=== PATIENT | female | born 1960 | race Two or more races ===

== ENCOUNTER 2017-06-23 08:43 | Outpatient (CLI) | payer OTHER ==
[~2017-06-23 08:43] MED LIST: ALDOMET PO; Coreg PO; FLONASE16 GM NS; GILTUSS TR TAB1 EACH PO; GLUCOPHAGE XR750 MG; GLUCOPHAGE XR750 MG PO; INTESTINEX1 CA1 PO; INTESTINEX1 CAP PO; LEVSIN/SL0.125 MG PO; LIPITOR20 MG; LISINOPRIL20 MG PO; LOSARTAN-HCTZ1 EAC2; MAXIDE; MAXIDEX15 ML OP; METFORMIN HCL750 MG; Mucinex 600 MG TABLET.SA PO; NEURONTIN300 MG PO; PEPCID20 MG PO; PRILOSEC10 MG PO; SPIRONOLACTONE25 MG PO; TESSALON PERLE100 M1 PO; TOPROL XL25 M1; WOMEN'S DAILY1 EACH; ZANTAC300 MG PO; ZESTRIL10 MG; ZOFRAN4 MG PO
== END 2017-06-23 08:50 | disposition home or self-care (01) ==
LOC: LAB 08:43
DX: I11.9 Hypertensive heart disease without heart failure (principal); E78.2 Mixed hyperlipidemia; E11.8 Type 2 diabetes mellitus with unspecified complications; E56.8 Deficiency of other vitamins

== ENCOUNTER 2017-07-28 08:15 | Outpatient (CLI) | payer OTHER | END 2017-07-28 08:23 | disposition home or self-care (01) | LOC: LAB 08:15 | DX: E11.65 Type 2 diabetes mellitus with hyperglycemia (principal); E03.8 Other specified hypothyroidism; E78.00 Pure hypercholesterolemia, unspecified ==

== ENCOUNTER 2017-11-01 16:30 | Outpatient (CLI) | payer OTHER | END 2017-11-01 16:38 | disposition home or self-care (01) | LOC: RAD 16:30 | DX: R05 Cough (principal) ==

== ENCOUNTER 2017-11-10 08:33 | Outpatient (CLI) | payer OTHER | END 2017-11-10 08:42 | disposition home or self-care (01) | LOC: LAB 08:33 | DX: E11.8 Type 2 diabetes mellitus with unspecified complications (principal); E78.2 Mixed hyperlipidemia; I11.9 Hypertensive heart disease without heart failure ==

== ENCOUNTER 2017-11-26 16:01 | Outpatient (CLI) | payer OTHER | END 2017-11-26 16:09 | disposition home or self-care (01) | LOC: RAD 16:01 | DX: M25.512 Pain in left shoulder (principal) ==

== ENCOUNTER 2017-11-29 10:35 | Outpatient (CLI) | payer OTHER | END 2017-11-29 11:25 | disposition home or self-care (01) | LOC: NUCLEAR 10:35 | DX: M85.80 Other specified disorders of bone density and structure, unspecified site (principal) ==

== ENCOUNTER → 2017-12-22 08:21 | Outpatient (CLI) | payer OTHER | END | disposition home or self-care (01) | LOC: LAB 08:21 | DX: E11.8 Type 2 diabetes mellitus with unspecified complications (principal); E78.2 Mixed hyperlipidemia; I11.9 Hypertensive heart disease without heart failure; E56.8 Deficiency of other vitamins; E55.9 Vitamin D deficiency, unspecified ==

== ENCOUNTER 2018-01-05 10:58 | Outpatient (CLI) | payer OTHER | END 2018-01-05 11:01 | disposition home or self-care (01) | LOC: LAB 10:58 | DX: E55.9 Vitamin D deficiency, unspecified (principal); M85.9 Disorder of bone density and structure, unspecified; E21.2 Other hyperparathyroidism; M81.8 Other osteoporosis without current pathological fracture; E56.1 Deficiency of vitamin K; E88.89 Other specified metabolic disorders; E83.42 Hypomagnesemia ==

== ENCOUNTER 2018-02-02 08:16 | Outpatient (CLI) | payer OTHER | END 2018-02-02 08:23 | disposition home or self-care (01) | LOC: LAB 08:16 | DX: E11.65 Type 2 diabetes mellitus with hyperglycemia (principal); E78.2 Mixed hyperlipidemia; E89.0 Postprocedural hypothyroidism ==

== ENCOUNTER 2018-03-28 17:06 | Outpatient (CLI) | payer OTHER | END 2018-03-28 17:11 | disposition home or self-care (01) | LOC: RAD 17:06 | DX: M54.2 Cervicalgia (principal); M54.6 Pain in thoracic spine ==

== ENCOUNTER 2018-05-06 13:21 | Outpatient (CLI) | payer OTHER | END 2018-05-06 13:24 | disposition home or self-care (01) | LOC: RAD 13:21 | DX: M54.5 Low back pain (principal) ==

== ENCOUNTER 2018-05-25 09:05 | Outpatient (CLI) | payer OTHER | END 2018-05-25 09:14 | disposition home or self-care (01) | LOC: LAB 09:05 | DX: I10 Essential (primary) hypertension (principal); J00 Acute nasopharyngitis [common cold]; M26.629 Arthralgia of temporomandibular joint, unspecified side; E78.49 Other hyperlipidemia ==

== ENCOUNTER → 2018-05-28 | Emergency (ER) | payer OTHER ==
[~2018-05-28] VITALS: Ht 149.9 cm; Wt 72.6 kg
[~2018-05-28] MED LIST changes: +CRESTOR5 MG
== END | disposition home or self-care (01) ==
LOC: ER 14:03
DX: S39.012A Strain of muscle, fascia and tendon of lower back, initial encounter (principal); X58.XXXA Exposure to other specified factors, initial encounter; Y93.89 Activity, other specified; Y92.89 Other specified places as the place of occurrence of the external cause; Y99.8 Other external cause status

== ENCOUNTER 2018-07-27 08:19 | Outpatient (CLI) | payer OTHER ==
[~2018-07-27 08:19] MED LIST changes: +LYRICA50 MG PO
== END 2018-07-27 08:24 | disposition home or self-care (01) ==
LOC: LAB 08:19
DX: E11.65 Type 2 diabetes mellitus with hyperglycemia (principal)

== ENCOUNTER → 2018-08-02 | Outpatient (CLI) | payer OTHER ==
[~2018-08-02] MED LIST changes: +ETODOLAC400 MG PO; +ROBAXIN500 MG PO
== END | disposition home or self-care (01) ==
LOC: MRI 10:46
DX: M54.16 Radiculopathy, lumbar region (principal); M54.5 Low back pain
CPT/HCPCS: 72148

== ENCOUNTER 2018-08-17 08:46 | Outpatient (CLI) | payer OTHER | END 2018-08-17 08:51 | disposition home or self-care (01) | LOC: LAB 08:46 | DX: Z11.3 Encounter for screening for infections with a predominantly sexual mode of transmission (principal) ==

== ENCOUNTER → 2018-08-31 08:02 | Outpatient (CLI) | payer OTHER | END | disposition home or self-care (01) | LOC: LAB 08:02 | DX: M06.9 Rheumatoid arthritis, unspecified (principal); M32.19 Other organ or system involvement in systemic lupus erythematosus; M81.0 Age-related osteoporosis without current pathological fracture; E03.8 Other specified hypothyroidism; M33.12 Other dermatomyositis with myopathy; I10 Essential (primary) hypertension ==

== ENCOUNTER 2018-09-13 10:17 | Outpatient (CLI) | payer OTHER | END 2018-09-13 10:36 | disposition home or self-care (01) | LOC: SONOGRAMA 10:17 | DX: R10.2 Pelvic and perineal pain (principal) ==

== ENCOUNTER → 2018-09-19 | Outpatient (CLI) | payer OTHER | END | disposition home or self-care (01) | LOC: LAB 08:27 | DX: M06.89 Other specified rheumatoid arthritis, multiple sites (principal); M32.19 Other organ or system involvement in systemic lupus erythematosus; D68.61 Antiphospholipid syndrome; M35.00 Sjogren syndrome, unspecified ==

== ENCOUNTER → 2018-10-21 | Outpatient (CLI) | payer OTHER | END | disposition home or self-care (01) | LOC: MAMO-SONO 14:03 | DX: N64.4 Mastodynia (principal); Z12.31 Encounter for screening mammogram for malignant neoplasm of breast ==

== ENCOUNTER 2018-11-06 16:25 | Outpatient (CLI) | payer OTHER | END 2018-11-06 16:34 | disposition home or self-care (01) | LOC: RAD 16:25 | DX: M16.0 Bilateral primary osteoarthritis of hip (principal) ==

== ENCOUNTER 2018-12-05 12:41 | Outpatient (CLI) | payer OTHER | END 2018-12-05 12:47 | disposition home or self-care (01) | LOC: MRI 12:41 | DX: M89.8X5 Other specified disorders of bone, thigh (principal); M25.552 Pain in left hip | CPT/HCPCS: 73721 ==

== ENCOUNTER 2018-12-07 08:53 | Outpatient (CLI) | payer OTHER | END 2018-12-07 09:11 | disposition home or self-care (01) | LOC: LAB 08:53 | DX: E11.65 Type 2 diabetes mellitus with hyperglycemia (principal); M33.12 Other dermatomyositis with myopathy; E78.00 Pure hypercholesterolemia, unspecified ==

== ENCOUNTER 2019-01-07 07:24 | Outpatient (CLI) | payer OTHER | END 2019-01-07 07:50 | disposition home or self-care (01) | LOC: NUCLEAR 07:24 | DX: M25.552 Pain in left hip (principal); D49.2 Neoplasm of unspecified behavior of bone, soft tissue, and skin | CPT/HCPCS: 78315; A9503 ==

== ENCOUNTER → 2019-03-08 08:30 | Outpatient (CLI) | payer OTHER | END | disposition home or self-care (01) | LOC: LAB 08:30 | DX: E11.65 Type 2 diabetes mellitus with hyperglycemia (principal) ==

== ENCOUNTER → 2019-06-28 07:49 | Outpatient (CLI) | payer OTHER | END | disposition home or self-care (01) | LOC: LAB 07:49 | DX: M45.9 Ankylosing spondylitis of unspecified sites in spine (principal); L40.59 Other psoriatic arthropathy; I10 Essential (primary) hypertension; E11.65 Type 2 diabetes mellitus with hyperglycemia; E78.00 Pure hypercholesterolemia, unspecified ==

== ENCOUNTER 2019-08-06 16:53 | Outpatient (CLI) | payer OTHER | END 2019-08-06 17:00 | disposition home or self-care (01) | LOC: RAD 16:53 | DX: D16.22 Benign neoplasm of long bones of left lower limb (principal); M25.561 Pain in right knee ==

== ENCOUNTER 2019-11-08 11:06 | Outpatient (CLI) | payer OTHER | END 2019-11-08 11:18 | disposition home or self-care (01) | LOC: LAB 11:06 | PROVIDERS: ATTEND General Practice | DX: R10.2 Pelvic and perineal pain (principal); E55.9 Vitamin D deficiency, unspecified; E11.9 Type 2 diabetes mellitus without complications; E78.49 Other hyperlipidemia; Z00.00 Encounter for general adult medical examination without abnormal findings; I10 Essential (primary) hypertension ==

== ENCOUNTER → 2019-11-19 | Outpatient (CLI) | payer OTHER | END | disposition home or self-care (01) | LOC: LAB 15:59 | PROVIDERS: ATTEND General Practice | DX: Z11.1 Encounter for screening for respiratory tuberculosis (principal) ==

== ENCOUNTER 2019-12-11 14:14 | Outpatient (CLI) | payer OTHER | END 2019-12-11 14:20 | disposition home or self-care (01) | LOC: MRI 14:14 | PROVIDERS: ATTEND Physical Medicine & Rehabilitation | DX: M54.5 Low back pain (principal) | CPT/HCPCS: 72148 ==

== ENCOUNTER 2020-01-02 08:05 | Emergency (ER) | payer OTHER ==
[~2020-01-02] VITALS: Ht 149.9 cm; Wt 72.6 kg
[2020-01-02] MEDS ORDERED: DICLOFENAC POTA50 MG (08:14)
[2020-01-02] MEDS ORDERED: CARAFATE1 GM PO (11:35)
[2020-01-02] MEDS ORDERED: LEVSIN/SL0.125 MG SL (11:35)
== END 2020-01-02 12:54 | disposition home or self-care (01) ==
LOC: ER 08:05
DX: R10.13 Epigastric pain (principal); Z03.818 Encounter for observation for suspected exposure to other biological agents ruled out

== ENCOUNTER 2020-02-06 09:00 | Outpatient (CLI) | payer OTHER ==
[~2020-02-06 09:00] MED LIST changes: +CARAFATE1 GM PO; +DICLOFENAC POTA50 MG; +LEVSIN/SL0.125 MG SL
== END 2020-02-06 15:43 | disposition home or self-care (01) ==
LOC: PPH VACUNA 09:00
DX: Z23 Encounter for immunization (principal)

== ENCOUNTER 2020-03-15 12:08 | Outpatient (CLI) | payer OTHER ==
[2020-03-24] MEDS ORDERED: ALDACTONE25 MG PO (08:24)
== END 2020-03-15 15:35 | disposition home or self-care (01) ==
LOC: MRI 12:08
PROVIDERS: ATTEND Orthopaedic Surgery
DX: S83.241A Other tear of medial meniscus, current injury, right knee, initial encounter (principal); M25.561 Pain in right knee
CPT/HCPCS: 73721

== ENCOUNTER 2020-03-30 05:46 | Day surgery (SDC) | payer OTHER ==
[~2020-03-30 05:46] MED LIST changes: +ALDACTONE25 MG PO
[2020-03-30] MEDS ORDERED: ULTRACET PO (08:24)
== END 2020-03-30 14:00 | disposition home or self-care (01) ==
LOC: CIR.AMB 05:46
PROVIDERS: ATTEND Orthopaedic Surgery
DX: M23.321 Other meniscus derangements, posterior horn of medial meniscus, right knee (principal); M94.261 Chondromalacia, right knee; Z20.828 Contact with and (suspected) exposure to other viral communicable diseases

== ENCOUNTER 2020-05-04 09:21 | Outpatient (CLI) | payer OTHER ==
[~2020-05-04 09:21] MED LIST changes: +ULTRACET PO
== END 2020-05-04 15:00 | disposition home or self-care (01) ==
LOC: PPH VACUNA 09:21
DX: Z23 Encounter for immunization (principal)

== ENCOUNTER → 2020-05-27 15:04 | Outpatient (CLI) | payer OTHER | END | disposition home or self-care (01) | LOC: RAD 15:04 | PROVIDERS: ATTEND General Practice | DX: M25.561 Pain in right knee (principal) ==

== ENCOUNTER 2020-05-28 12:07 | Outpatient (CLI) | payer OTHER | END 2020-05-28 12:08 | disposition home or self-care (01) | LOC: LAB 12:07 | PROVIDERS: ATTEND Internal Medicine | DX: I10 Essential (primary) hypertension (principal); E78.2 Mixed hyperlipidemia; E03.8 Other specified hypothyroidism; R80.8 Other proteinuria ==

== ENCOUNTER 2020-08-14 08:00 | Outpatient (CLI) | payer OTHER | END 2020-08-14 15:00 | disposition home or self-care (01) | LOC: LAB 08:00 | PROVIDERS: ATTEND Internal Medicine | DX: Z13.820 Encounter for screening for osteoporosis (principal); R80.8 Other proteinuria; N39.0 Urinary tract infection, site not specified; E03.8 Other specified hypothyroidism ==

== ENCOUNTER 2020-08-16 13:47 | Outpatient (CLI) | payer OTHER | END 2020-08-16 13:56 | disposition home or self-care (01) | LOC: MAMO-SONO 13:47 | PROVIDERS: ATTEND Internal Medicine | DX: Z13.820 Encounter for screening for osteoporosis (principal); N64.59 Other signs and symptoms in breast ==

== ENCOUNTER 2020-08-17 13:54 | Outpatient (CLI) | payer OTHER | END 2020-08-17 13:56 | disposition home or self-care (01) | LOC: NUCLEAR 13:54 | PROVIDERS: ATTEND Internal Medicine | DX: M81.0 Age-related osteoporosis without current pathological fracture (principal) ==

== ENCOUNTER 2020-11-09 06:30 | Emergency (ER) | payer OTHER ==
[~2020-11-09] VITALS: Ht 149.9 cm; Wt 72.6 kg
[2020-11-09] MEDS ORDERED: TESSALON PERLE100 M1 PO (09:38)
== END 2020-11-09 10:09 | disposition home or self-care (01) ==
LOC: ER 06:30
DX: R05 Cough (principal); E83.42 Hypomagnesemia; Z11.52 Encounter for screening for COVID-19

== ENCOUNTER 2020-12-21 09:39 | Emergency (ER) | payer OTHER ==
[~2020-12-21] VITALS: Ht 149.9 cm; Wt 72.6 kg
[2020-12-21] MEDS ORDERED: CIPRO500 MG PO (14:45)
== END 2020-12-21 15:39 | disposition home or self-care (01) ==
LOC: ER 09:39
DX: R30.0 Dysuria (principal)

== ENCOUNTER 2021-01-28 12:46 | Outpatient (CLI) | payer OTHER ==
[~2021-01-28 12:46] MED LIST changes: +CIPRO500 MG PO
== END 2021-01-28 12:47 | disposition home or self-care (01) ==
LOC: LAB 12:46
PROVIDERS: ATTEND General Practice
DX: M25.511 Pain in right shoulder (principal); M25.551 Pain in right hip

== ENCOUNTER 2021-02-17 08:00 | Outpatient (CLI) | payer OTHER | END 2021-02-17 08:30 | disposition home or self-care (01) | LOC: PPH VACUNA 08:00 | PROVIDERS: ATTEND Emergency Medicine Pediatric Emergency Medicine | DX: Z23 Encounter for immunization (principal) ==

== ENCOUNTER 2021-02-25 07:38 | Outpatient (CLI) | payer OTHER | END 2021-02-25 07:39 | disposition home or self-care (01) | LOC: LAB 07:38 → RAD 07:38 → LAB 07:39 | PROVIDERS: ATTEND General Practice | DX: M54.59 Other low back pain (principal) ==

== ENCOUNTER 2021-05-23 08:18 | Emergency (ER) | payer OTHER ==
[~2021-05-23] VITALS: Ht 149.9 cm; Wt 70.3 kg
[2021-05-23] MEDS ORDERED: EZALLOR SPRINKLE5 MG PO (08:27)
[2021-05-23] MEDS ORDERED: CARVEDILOL ER40 MG (08:27)
== END 2021-05-23 10:36 | disposition home or self-care (01) ==
LOC: ER 08:18
DX: B34.9 Viral infection, unspecified (principal); E11.9 Type 2 diabetes mellitus without complications; I10 Essential (primary) hypertension; Z79.84 Long term (current) use of oral hypoglycemic drugs; Z20.822 Contact with and (suspected) exposure to COVID-19

== ENCOUNTER 2021-05-25 06:54 | Outpatient (CLI) | payer OTHER ==
[~2021-05-25 06:54] MED LIST changes: +CARVEDILOL ER40 MG; +EZALLOR SPRINKLE5 MG PO
== END 2021-05-25 06:58 | disposition home or self-care (01) ==
LOC: LAB 06:54
PROVIDERS: ATTEND Emergency Medicine Pediatric Emergency Medicine
DX: I10 Essential (primary) hypertension (principal); M54.59 Other low back pain; Z01.810 Encounter for preprocedural cardiovascular examination; E03.8 Other specified hypothyroidism; E78.89 Other lipoprotein metabolism disorders; E55.9 Vitamin D deficiency, unspecified; E11.51 Type 2 diabetes mellitus with diabetic peripheral angiopathy without gangrene; E11.9 Type 2 diabetes mellitus without complications; E66.8 Other obesity; G62.89 Other specified polyneuropathies; Z13.820 Encounter for screening for osteoporosis

== ENCOUNTER 2021-05-30 13:26 | Outpatient (CLI) | payer OTHER | END 2021-05-30 13:31 | disposition home or self-care (01) | LOC: LAB 13:26 | DX: U07.1 COVID-19 (principal) ==

== ENCOUNTER 2021-06-16 12:20 | Emergency (ER) | payer OTHER ==
[~2021-06-16] VITALS: Ht 149.9 cm; Wt 72.6 kg
[2021-06-16] MEDS ORDERED: KETO10TA2 PO (15:07)
[2021-06-16] MEDS ORDERED: LEVSIN/SL0.125 MG PO (15:07)
== END 2021-06-16 15:15 | disposition home or self-care (01) ==
LOC: ER 12:20
DX: R10.11 Right upper quadrant pain (principal); Z03.818 Encounter for observation for suspected exposure to other biological agents ruled out

== ENCOUNTER → 2021-07-29 06:27 | Outpatient (CLI) | payer OTHER ==
[~2021-07-29 06:27] MED LIST changes: +KETO10TA2 PO
== END | disposition home or self-care (01) ==
LOC: LAB 06:27
DX: E88.9 Metabolic disorder, unspecified (principal); E03.9 Hypothyroidism, unspecified; D64.9 Anemia, unspecified

== ENCOUNTER 2021-08-26 13:55 | Outpatient (CLI) | payer OTHER | END 2021-08-26 14:25 | disposition home or self-care (01) | LOC: PPH VACUNA 13:55 | PROVIDERS: ATTEND Emergency Medicine Pediatric Emergency Medicine | DX: Z23 Encounter for immunization (principal) ==

== ENCOUNTER 2021-08-27 10:22 | Outpatient (CLI) | payer OTHER | END 2021-08-27 10:27 | disposition home or self-care (01) | LOC: LAB 10:22 | PROVIDERS: ATTEND General Practice | DX: E78.5 Hyperlipidemia, unspecified (principal); E55.9 Vitamin D deficiency, unspecified; N39.0 Urinary tract infection, site not specified; R10.2 Pelvic and perineal pain; R42 Dizziness and giddiness; I10 Essential (primary) hypertension; E11.9 Type 2 diabetes mellitus without complications; M79.0 Rheumatism, unspecified ==

== ENCOUNTER 2021-09-15 10:24 | Outpatient (CLI) | payer OTHER | END 2021-09-15 15:00 | disposition home or self-care (01) | LOC: LAB 10:24 | DX: Z20.828 Contact with and (suspected) exposure to other viral communicable diseases (principal) ==

== ENCOUNTER 2021-09-15 13:53 | Outpatient (CLI) | payer OTHER | END 2021-09-15 14:53 | disposition home or self-care (01) | LOC: ASH CLINIC 13:53 | PROVIDERS: ATTEND Emergency Medicine | DX: Z23 Encounter for immunization (principal); U07.1 COVID-19 ==

== ENCOUNTER 2022-01-18 08:00 | Outpatient (CLI) | payer OTHER | END 2022-01-18 08:05 | disposition home or self-care (01) | LOC: PPH VACUNA 08:00 | PROVIDERS: ATTEND Emergency Medicine Pediatric Emergency Medicine | DX: Z23 Encounter for immunization (principal) ==

== ENCOUNTER 2022-04-20 12:04 | Emergency (ER) | payer OTHER ==
[~2022-04-20] VITALS: Ht 149.9 cm; Wt 72.6 kg
== END 2022-04-20 14:43 | disposition home or self-care (01) ==
LOC: ER 12:04
DX: B34.9 Viral infection, unspecified (principal); Z20.822 Contact with and (suspected) exposure to COVID-19

== ENCOUNTER 2022-04-27 08:10 | Inpatient (IN) | payer OTHER ==
[~2022-04-27] VITALS: Ht 149.9 cm; Wt 71.2 kg
--- NOTE | 2022-04-27 08:23 | NUR ---
FEMINA DE 61 Y/O ALERTA Y ORIENTADA X3 VERBALIZA FIERTE LODOR EN LADO DERECHO DE ESPALDA BAJA. SE MIDEN S/V Y SE UBICA EN PASILLO EN ESPERA DE EVALUACION MEDICA.
--- NOTE | 2022-04-27 08:58 | NUR ---
PACIENTE EVALUADA POR DR BOLAÑOS QUIEN ORDENA TX MEDICO, MS C NEELY LE ORIENTA A PACIENTE SOBRE EL MISMO Y VERBALIZA ENTENDER, LE COLECTA MUESTRAS DE LABORATORIO Y LE ADMINISTRA MEDICAMENTOS CHRIS ORDEN, PACIENTE ES LLEVADA A ESTUDIO POR PERSONAL DE ESCOLTA DE TURNO
--- NOTE | 2022-04-27 18:28 | NUR ---
SE ADMINISTRAN MEDICAMENTOS Y SE EXTRAEN MUESTRAS BAJO MEDIDAS ASEPTICAS.
[2022-05-01] MEDS ORDERED: CARVEDILOL6.25 MG (09:14)
[2022-05-05] MEDS ORDERED: VITAMIN D3125 MC2 PO (16:47)
[2022-05-05] MEDS ORDERED: CYMBALTA60 MG PO (16:48)
[2022-05-05] MEDS ORDERED: CELEBREX200MG PO (16:50)
== END 2022-05-05 22:11 | disposition home or self-care (01) | DRG 552 ==
LOC: ER 08:10 → MEDI 20:45
PROVIDERS: ADMIT Internal Medicine; ATTEND Internal Medicine
PROC: BW21ZZZ Computerized Tomography (CT Scan) of Abdomen and Pelvis (ICD-10-PCS; principal; 2022-04-27)
PROC: BR29ZZZ Computerized Tomography (CT Scan) of Lumbar Spine (ICD-10-PCS; 2022-04-27)
PROC: BR39ZZZ Magnetic Resonance Imaging (MRI) of Lumbar Spine (ICD-10-PCS; 2022-04-27)
DX: M48.061 Spinal stenosis, lumbar region without neurogenic claudication (principal); M47.896 Other spondylosis, lumbar region; M51.86 Other intervertebral disc disorders, lumbar region; G47.33 Obstructive sleep apnea (adult) (pediatric); I10 Essential (primary) hypertension; E55.9 Vitamin D deficiency, unspecified; Z20.822 Contact with and (suspected) exposure to COVID-19; E11.65 Type 2 diabetes mellitus with hyperglycemia; Z79.4 Long term (current) use of insulin; G62.9 Polyneuropathy, unspecified
CPT/HCPCS: 72158

== ENCOUNTER 2022-06-20 14:17 | Outpatient (CLI) | payer OTHER ==
[~2022-06-20 14:17] MED LIST changes: +CARVEDILOL6.25 MG; +CELEBREX200MG PO; +CYMBALTA60 MG PO; +VITAMIN D3125 MC2 PO
== END 2022-06-20 14:19 | disposition home or self-care (01) ==
LOC: RAD 14:17
PROVIDERS: ATTEND General Practice
DX: M25.521 Pain in right elbow (principal)

== ENCOUNTER 2022-07-26 09:42 | Outpatient (CLI) | payer OTHER | END 2022-07-26 11:14 | disposition home or self-care (01) | LOC: SONOGRAMA 09:42 | PROVIDERS: ATTEND Physical Medicine & Rehabilitation | DX: M77.11 Lateral epicondylitis, right elbow (principal) ==

== ENCOUNTER 2022-08-10 08:31 | Outpatient (CLI) | payer OTHER | END 2022-08-10 08:32 | disposition home or self-care (01) | LOC: RAD 08:31 | PROVIDERS: ATTEND General Practice | DX: M25.561 Pain in right knee (principal) ==

== ENCOUNTER 2022-09-02 08:55 | Outpatient (CLI) | payer OTHER | END 2022-09-02 08:58 | disposition home or self-care (01) | LOC: LAB 08:55 | PROVIDERS: ATTEND General Practice | DX: I10 Essential (primary) hypertension (principal); E78.5 Hyperlipidemia, unspecified; E55.9 Vitamin D deficiency, unspecified; N39.0 Urinary tract infection, site not specified; Z00.00 Encounter for general adult medical examination without abnormal findings ==

== ENCOUNTER 2022-10-11 14:10 | Outpatient (CLI) | payer OTHER | END 2022-10-11 14:36 | disposition home or self-care (01) | LOC: LAB 14:10 | DX: R93.5 Abnormal findings on diagnostic imaging of other abdominal regions, including retroperitoneum (principal) ==

== ENCOUNTER 2022-10-23 10:13 | Outpatient (CLI) | payer OTHER | END 2022-10-23 10:14 | disposition home or self-care (01) | LOC: LAB 10:13 | PROVIDERS: ATTEND Preventive Medicine Occupational Medicine | DX: U07.1 COVID-19 (principal) ==

== ENCOUNTER 2023-02-09 01:00 | Outpatient (CLI) | payer OTHER | END 2023-02-09 01:10 | disposition home or self-care (01) | LOC: PPH VACUNA 01:00 | PROVIDERS: ATTEND Emergency Medicine Pediatric Emergency Medicine | DX: Z23 Encounter for immunization (principal) | CPT/HCPCS: 90686; G0008 ==

== ENCOUNTER → 2023-02-22 | Outpatient (CLI) | payer OTHER | END | disposition home or self-care (01) | LOC: MRI 14:05 | PROVIDERS: ATTEND Orthopaedic Surgery | DX: M23.300 Other meniscus derangements, unspecified lateral meniscus, right knee (principal) | CPT/HCPCS: 73721 ==

== ENCOUNTER → 2023-03-02 10:07 | Outpatient (CLI) | payer OTHER ==
[2023-03-02 07:42] LABS: HEMATOCRIT 36.8 % (36.0-45.00); HEMOGLOBIN 12.5 g/dL (12.0-15.00); MEAN CORPUSCULAR HEMOGLOBIN 30.7 pg (27.00-32.0); MEAN CORPUSCULAR HGB CONC 34.1 g/dl (32.0-36.0); PLATELET COUNT 273 K/uL (150-450); RED BLOOD COUNT 4.08 M/uL (4.00-6.00); RED CELL DISTRIBUTION WIDTH 12.9 % (11.5-14.5)
[2023-03-02 07:52] LABS: ERYTHROCYTE SEDIMENTATION RATE 27 mm/hr
[2023-03-02 07:52] LABS: URINE APPEARANCE Clear; URINE BILIRRUBIN Negative (NEGATIVE); URINE BLOOD Negative; URINE COLOR Yellow; URINE GLUCOSE Negative (NEGATIVE); URINE LEUKOCYTE Moderate; URINE NITRATE Negative; URINE PROTEIN Negative (NEGATIVE); URINE UROBILINOGEN 0.2 E.U./dl
[2023-03-02 07:59] LABS: URINE BACTERIA 2497.1 uL (0.0-1933); URINE RBC 22.8 uL (0.0-20.8); URINE WBC 100.6 uL (0.0-23.2)
[2023-03-02 08:29] LABS: ALBUMIN 3.8 gm/dL (3.4-5.0); ALKALINE PHOSPHATASE 68 U/L (50-136); ALT/SGPT 31 U/L (12-78); ANION GAP 8 (10.0-20.0); AST/SGOT 13 U/L (15-37); BILIRUBIN TOTAL 0.34 mg/dL (0.3-1.2); BILIRUBIN,UNCONJUGATED 0.24 mg/dL (0.0-0.6); BLOOD UREA NITROGEN 14 mg/dL (7-18); BUN CREA RATIO 14 (7.0-25.0); CALCIUM 9.5 mg/dL (8.5-10.1); CARBON DIOXIDE 30 mEq/L (21-32); CHLORIDE 104 mmol/L (98-107); CHOLESTEROL 184 mg/dL (0-200); CREATININE SERUM 0.97 mg/dL (0.55-1.02); GFR 58.38; GLOBULINA 3.3 G/DL (2.4-3.5); GLUCOSE FASTING 142 mg/dL (65-100); HDL 37 mg/dl (40-60); LDL 118 mg/dl (0-130); OSMOLALITY SERUM 279 MOSM/KG (275-295); SODIUM 138 mmol/L (136-145); T3 UPTAKE 30 % (30-39); T4 TOTAL 7.47 UG/DL (4.8-13.9); TOTAL PROTEIN 7.1 gm/dL (6.4-8.2); TRIGLYCERIDES 143 mg/dL (0-150); VLDL 28 (0-39)
[2023-03-02 08:35] LABS: C-REACTIVE PROTEIN < 0.29 MG/DL (0.00-0.29)
[2023-03-02 09:31] LABS: CORTISOL 14.49 ug/dl; T3 TOTAL 1.4 ng/ml (0.846-2.02); VITAMIN D3 25 HYDROXY 21.24 ng/ml (30-120)
== END | disposition home or self-care (01) ==
LOC: LAB 10:07
PROVIDERS: ATTEND General Practice
DX: E78.5 Hyperlipidemia, unspecified (principal); E55.9 Vitamin D deficiency, unspecified; N39.0 Urinary tract infection, site not specified; R42 Dizziness and giddiness; M13.80 Other specified arthritis, unspecified site; R10.2 Pelvic and perineal pain; F32.9 Major depressive disorder, single episode, unspecified; Z88.0 Allergy status to penicillin; Z88.6 Allergy status to analgesic agent

== ENCOUNTER 2023-03-06 07:37 | Outpatient (CLI) | payer OTHER | END 2023-03-06 07:41 | disposition home or self-care (01) | LOC: RAD 07:37 | PROVIDERS: ATTEND Orthopaedic Surgery | DX: M17.11 Unilateral primary osteoarthritis, right knee (principal); Z88.0 Allergy status to penicillin; Z88.6 Allergy status to analgesic agent ==

== ENCOUNTER 2023-03-07 13:36 | Outpatient (CLI) | payer OTHER | END 2023-03-07 14:07 | disposition home or self-care (01) | LOC: LAB 13:36 | PROVIDERS: ATTEND General Practice | DX: N39.0 Urinary tract infection, site not specified (principal); Z88.0 Allergy status to penicillin; Z88.6 Allergy status to analgesic agent ==

== ENCOUNTER 2023-04-23 08:37 | Outpatient (CLI) | payer OTHER ==
[2023-04-23 09:17] LABS: HEMATOCRIT 39.6 % (36.0-45.00); HEMOGLOBIN 13.9 g/dL (12.0-15.00); MEAN CORPUSCULAR HEMOGLOBIN 31.9 pg (27.00-32.0); MEAN CORPUSCULAR HGB CONC 35.1 g/dl (32.0-36.0); PLATELET COUNT 332 K/uL (150-450); RED BLOOD COUNT 4.35 M/uL (4.00-6.00); RED CELL DISTRIBUTION WIDTH 12.2 % (11.5-14.5)
[2023-04-23 09:47] LABS: ALBUMIN 4.1 gm/dL (3.4-5.0); BILIRUBIN TOTAL 0.29 mg/dL (0.3-1.2); CALCIUM 9.9 mg/dL (8.5-10.1); CREATININE SERUM 1.3 mg/dL (0.55-1.02); GFR 41.64; GLOBULINA 3.9 G/DL (2.4-3.5)
== END 2023-04-23 08:38 | disposition home or self-care (01) ==
LOC: LAB 08:37
PROVIDERS: ATTEND General Practice
DX: B34.9 Viral infection, unspecified (principal)

== ENCOUNTER → 2023-07-12 08:48 | Outpatient (CLI) | payer OTHER ==
[2023-07-12 09:27] LABS: HEMATOCRIT 37.7 % (36.0-45.00); HEMOGLOBIN 12.8 g/dL (12.0-15.00); MEAN CELL VOLUME 88.6 fL (80.00-100.00); MEAN CORPUSCULAR HEMOGLOBIN 30.1 pg (27.00-32.0); PLATELET COUNT 269 K/uL (150-450); RED BLOOD COUNT 4.25 M/uL (4.00-6.00)
[2023-07-12 09:33] LABS: URINE APPEARANCE Clear; URINE BILIRRUBIN Negative (NEGATIVE); URINE BLOOD Negative; URINE COLOR Yellow; URINE GLUCOSE Negative (NEGATIVE); URINE LEUKOCYTE Trace; URINE NITRATE Negative; URINE PROTEIN Negative (NEGATIVE); URINE UROBILINOGEN 0.2 E.U./dl
[2023-07-12 09:38] LABS: URINE EPITHELIAL CELLS 34.4 uL (0.0-38.8); URINE RBC 25.5 uL (0.0-20.8)
[2023-07-12 10:08] LABS: ALBUMIN 3.9 gm/dL (3.4-5.0); ALKALINE PHOSPHATASE 70 U/L (50-136); ALT/SGPT 48 U/L (12-78); ANION GAP 4 (10.0-20.0); AST/SGOT 21 U/L (15-37); BILIRUBIN TOTAL 0.36 mg/dL (0.3-1.2); BILIRUBIN,CONJUGATED < 0.10 mg/dL (0.0-0.2); BILIRUBIN,UNCONJUGATED 0.26 mg/dL (0.0-0.6); BLOOD UREA NITROGEN 15 mg/dL (7-18); BUN CREA RATIO 18 (7.0-25.0); CALCIUM 9.3 mg/dL (8.5-10.1); CARBON DIOXIDE 30 mEq/L (21-32); CHLORIDE 108 mmol/L (98-107); CHOL HDL RATIO 5.5 (0-5.0); CHOLESTEROL 177 mg/dL (0-200); CREATININE SERUM 0.82 mg/dL (0.55-1.02); GFR 70.87; GLOBULINA 3.3 G/DL (2.4-3.5); GLUCOSE FASTING 185 mg/dL (65-100); HDL 32 mg/dl (40-60); LDL 98 mg/dl (0-130); OSMOLALITY SERUM 281 MOSM/KG (275-295); POTASSIUM 4.43 mEq/L (3.5-5.1); SODIUM 138 mmol/L (136-145); TOTAL PROTEIN 7.2 gm/dL (6.4-8.2); TSH 0.791 uIU/mL (0.358-3.74); VLDL 47 (0-39)
[2023-07-12 10:10] LABS: TRIGLYCERIDES 236 mg/dL (0-150)
== END | disposition home or self-care (01) ==
LOC: LAB 08:48
PROVIDERS: ATTEND General Practice
DX: E11.9 Type 2 diabetes mellitus without complications (principal); E78.5 Hyperlipidemia, unspecified; I10 Essential (primary) hypertension